=== PATIENT | female | born 1980 | race Caucasian/White ===

== ENCOUNTER 2016-11-17 00:06 | Observation (INO) | payer MEDICAID ==
[2016-11-17] VITALS (8 sets, daily range): BP systolic 119–162; BP diastolic 70–95; PULSE 70–107; RESP 16–20; TEMP 97.7–98.3; O2SAT 95–100
--- NOTE | 2016-11-17 01:07 | PD ---
HPI Chief Complaint: Abdominal Pain Time Seen by Provider: 00:24 Travel History International Travel<30 days: No Contact w/Intl Traveler<30days: No Traveled to known affect area: No History of Present Illness HPI Patient 36-year-old female initially speaker presents emergency department for right upper quadrant abdominal pain which first started about 5:00 in the afternoon. Patient states she was at work when he first started. States her last meal was approximately 8:00 and she had some fried plantains as well as beans and eggs. Patient states the pain is primarily in the right upper quadrant radiating around to her back. She denies any diarrhea but does endorse nausea and vomiting which is "greasy". She states she did have a previous episode similar in the past approximately 2 weeks ago which was fairly mild. She has not had any surgeries on her abdomen. Denies any allergies. Has not taken anything prior to arrival. Describes pain as cramping in nature. This history is obtained through sports teacher service. Denies any dysuria vaginal bleeding vaginal discharge. [facility] Past Medical History Medical History: Denies Significant Hx Diminished Hearing: No Tetanus Vaccination: Unknown Influenza Vaccination: No ?: Not : 4 Para: 3 Miscarriage: 1 Past Surgical History Surgical History: No Previous Surgery Section: Yes (X1) Hysterectomy: Yes Social History Alcohol Use: No Tobacco Use: No Substance Use: No Allergies-Medications (Allergen,Severity, Reaction): Coded Allergies: No Known Allergies (Unverified , 11/17/16) Reported Meds & Prescriptions Reported Meds & Active Scripts Active No Active Prescriptions or Reported Medications Review of Systems Except as stated in HPI: all other systems reviewed are Neg Physical Exam Narrative GENERAL: Well-developed well-nourished no apparent distress. SKIN: Focused skin assessment warm/dry. HEAD: Atraumatic. Normocephalic. EYES: Pupils equal and round. No scleral icterus. No injection or drainage. ENT: No nasal bleeding or discharge. Mucous membranes pink and moist. NECK: Trachea midline. No JVD. CARDIOVASCULAR: Regular rate and rhythm. No murmur appreciated. RESPIRATORY: No accessory muscle use. Clear to auscultation. Breath sounds equal bilaterally. GASTROINTESTINAL: Abdomen soft, moderately tender in the right upper quadrant, nondistended. Hepatic and splenic margins not palpable. Wahl sign is weakly positive. Psoas and obturator signs negative. No peritoneal signs. No CVA tenderness. MUSCULOSKELETAL: No obvious deformities. No clubbing. No cyanosis. No edema. NEUROLOGICAL: Awake and alert. No obvious cranial nerve deficits. Motor grossly within normal limits. Normal speech. PSYCHIATRIC: Appropriate mood and affect; insight and judgment normal. Data Data Last Documented VS Vital Signs Date Time Temp Pulse Resp B/P Pulse Ox O2 Delivery O2 Flow Rate FiO2 11/17/16 02:08 85 18 121/72 99 Room Air 11/17/16 00:09 98.2 Orders Complete Blood Count With Diff (11/17/16 00:25) Comprehensive Metabolic Panel (11/17/16 00:25) Lipase (11/17/16 00:25) Urinalysis - C+S If Indicated (11/17/16 00:25) Iv Access Insert/Monitor (11/17/16 00:25) Ecg Monitoring (11/17/16 00:25) Oximetry (11/17/16 00:25) Ed Urine Pregnancytest Poc (11/17/16 00:25) Morphine Inj (Morphine Inj) (11/17/16 01:45) Ondansetron Inj (Zofran Inj) (11/17/16 01:45) Sodium Chlor 0.9% 1000 Ml Inj (Ns 1000 M (11/17/16 01:45) Us Abdomen Gallbladder (11/17/16 01:44) Admit Order (Ed Use Only) (11/17/16 ) Activity Bed Rest With Brp (11/17/16 03:53) Morphine Inj (Morphine Inj) (11/17/16 04:00) Ondansetron Inj (Zofran Inj) (11/17/16 04:00) Ceftriaxone Inj (Rocephin Inj) (11/17/16 04:00) Metronidazole 500 Mg Inj (Flagyl 500 Mg (11/17/16 04:00) Sodium Chlor 0.9% 1000 Ml Inj (Ns 1000 M (11/17/16 04:00) Diet Npo (11/17/16 Breakfast) Labs Laboratory Tests Test 11/17/16 11/17/16 00:40 01:45 White Blood Count 9.8 TH/MM3 Red Blood Count 4.05 MIL/MM3 Hemoglobin 12.6 GM/DL Hematocrit 37.7 % Mean Corpuscular Volume 93.0 FL Mean Corpuscular Hemoglobin 31.2 PG Mean Corpuscular Hemoglobin 33.5 % Concent Red Cell Distribution Width 13.5 % Platelet Count 290 TH/MM3 Mean Platelet Volume 9.4 FL Neutrophils (%) (Auto) 53.7 % Lymphocytes (%) (Auto) 35.8 % Monocytes (%) (Auto) 6.5 % Eosinophils (%) (Auto) 3.4 % Basophils (%) (Auto) 0.6 % Neutrophils # (Auto) 5.3 TH/MM3 Lymphocytes # (Auto) 3.5 TH/MM3 Monocytes # (Auto) 0.6 TH/MM3 Eosinophils # (Auto) 0.3 TH/MM3 Basophils # (Auto) 0.1 TH/MM3 CBC Comment DIFF FINAL Differential Comment Sodium Level 142 MEQ/L Potassium Level 3.7 MEQ/L Chloride Level 108 MEQ/L Carbon Dioxide Level 23.9 MEQ/L Anion Gap 10 MEQ/L Blood Urea Nitrogen 13 MG/DL Creatinine 0.80 MG/DL Estimat Glomerular Filtration 82 ML/MIN Rate Random Glucose 109 MG/DL Calcium Level 8.5 MG/DL Total Bilirubin 0.4 MG/DL Aspartate Amino Transf 18 U/L (AST/SGOT) Alanine Aminotransferase 25 U/L (ALT/SGPT) Alkaline Phosphatase 59 U/L Total Protein 7.6 GM/DL Albumin 3.7 GM/DL Lipase 252 U/L Urine Color LIGHT-YELLOW Urine Turbidity CLEAR Urine pH 7.5 Urine Specific Morgan 1.009 Urine Protein NEG mg/dL Urine Glucose (UA) NEG mg/dL Urine Ketones NEG mg/dL Urine Occult Blood NEG Urine Nitrite NEG Urine Bilirubin NEG Urine Urobilinogen LESS THAN 2.0 MG/DL Urine Leukocyte Esterase NEG Urine RBC LESS THAN 1 /hpf Urine WBC LESS THAN 1 /hpf Urine Squamous Epithelial <1 /hpf Cells Urine Bacteria FEW /hpf Microscopic Urinalysis Comment CULT NOT INDICATED MDM Medical Decision Making Medical Screen Exam Complete: Yes Emergency Medical Condition: Yes Differential Diagnosis Cholecystitis, pancreatitis, gastritis, gastroenteritis. Narrative Course Patient 36-year-old female fairly classic for cholecystitis. Ultrasound does show: Last 24 hours Impressions Gall Bladder Ultrasound 11/17/16 0144 Signed Impressions: Service Date/Time: Thursday, November 17, 2016 02:10 - CONCLUSION: 1. Cholelithiasis with a stone lodged in the neck of the gallbladder. There is some wall thickening. This can be seen in chronic as well as acute cholecystitis. 2. Dilated common bile duct. The visualized portions of the common bile duct show no discernible stone. There are portions that are not well seen. MRCP could be entertained to further evaluate if clinically warranted. 3. Hepatic steatosis. Ryan Avalos Jr., MD Patient's labs are reassuring including LFTs white blood cell count. Patient is afebrile in the emergency department. She was given morphine and Zofran and still is having waxing and waning right upper quadrant abdominal pain. Patient was discussed Dr. Philippe for admission and he is agreeable. Holding orders were placed. This was all discussed with the patient through sports teacher service and she is agreeable for this course of action. Her pain she states is a little bit better but still waxing and waning she declined additional pain medicine. She understands that the course of treatment for cholecystitis as ultimately surgery and she is willing to consider it. Patient remain nothing by mouth for probable surgical intervention tomorrow later today. Diagnosis Primary Impression: Acute cholecystitis Admitting Information Admitting Physician Requests: Admit Scripts No Active Prescriptions or Reported Meds Condition: Pérez Erwin MD Nov 17, 2016 01:07
[2016-11-17 01:10] LABS: AUTOMATED NEUTROPHIL # 5.3 TH/MM3 (1.8-7.7); BASOPHIL # 0.1 TH/MM3 (0-0.2); BASOPHIL % 0.6 % (0.0-2.0); EOSINOPHIL # 0.3 TH/MM3 (0-0.4); EOSINOPHIL % 3.4 % (0.0-4.0); HEMATOCRIT 37.7 % (35.0-46.0); HEMO FLAGS DIFF FINAL; LYMPH % 35.8 % (9.0-44.0); LYMPHOCYTE # 3.5 TH/MM3 (1.0-4.8); MEAN CORPUSCULAR HEMOGLOBIN 31.2 PG (27.0-34.0); MEAN CORPUSCULAR HGB CONC 33.5 % (32.0-36.0); MONO % 6.5 % (0.0-8.0); NEUT % 53.7 % (16.0-70.0); PLATELET COUNT 290 TH/MM3 (150-450); RED BLOOD COUNT 4.05 MIL/MM3 (4.00-5.30); RED CELL DISTRIBUTION WIDTH 13.5 % (11.6-17.2); WHITE BLOOD COUNT 9.8 TH/MM3 (4.0-11.0)
[2016-11-17 01:24] LABS: ALT (GPT) 25 U/L (10-53); ANION GAP 10 MEQ/L (5-15); AST (GOT) 18 U/L (15-37); BICARBONATE 23.9 MEQ/L (21.0-32.0); BLOOD UREA NITROGEN 13 MG/DL (7-18); CHLORIDE 108 MEQ/L (98-107); GLOMERULAR FILTRATION RATE 82 ML/MIN (>89); POTASSIUM 3.7 MEQ/L (3.5-5.1); SODIUM (NA) 142 MEQ/L (136-145)
[2016-11-17 01:27] LABS: ALKALINE PHOSPHATASE 59 U/L (45-117); TOTAL BILIRUBIN ADULT 0.4 MG/DL (0.2-1.0)
[2016-11-17] MEDS ORDERED: MORPHINE SULFATE 4 MG/ML INJ IV PUSH ONE (01:45)
[2016-11-17] MEDS ORDERED: ONDANSETRON HCL 4 MG/2 ML VIAL IV PUSH ONE ×2 (01:45→12:00)
[2016-11-17] MEDS ORDERED: SODIUM CHLOR 0.9% 1000 ML INJ 1,000 ML IV ONE (01:45)
[2016-11-17 02:07] LABS: BACTERIA, URINE FEW /hpf; BLOOD, URINE NEG (NEG); GLUCOSE,URINE NEG (NEG); KETONE, URINE NEG (NEG); NITRITE,URINE NEG (NEG); PH, URINE 7.5 (5.0-8.5); SQUAMOUS EPITHELIAL CELL URINE <1 /hpf (0-5); URINE COLOR LIGHT-YELLOW (YELLW/STRAW)
[2016-11-17 02:08] LABS: COMMENT (UR) CULT NOT INDICATED; CULTURE IF INDICATED CULT NOT INDICATED
--- NOTE | 2016-11-17 02:55 | RADRPT ---
EXAM DATE/TIME: 11/17/2016 02:10 [facility] COMPARISON: No previous studies available for comparison. INDICATIONS : Right upper quadrant pain. MEDICAL HISTORY : Right upper quadrant pain. SURGICAL HISTORY : None. ENCOUNTER: Initial ACUITY: 2 weeks PAIN SCORE: 10/10 LOCATION: Right upper quadrant MEASUREMENTS: LIVER: 18.8 cm length COMMON DUCT: 10 mm RIGHT KIDNEY: 11.1 x 5.8 x 4.9 cm FINDINGS: LIVER: Liver is diffusely echogenic. No mass or ductal dilatation. Hepatopedal flow within the portal vein. COMMON DUCT: The common bile duct is dilated measuring 10 mm. No discernible stone within the common bile duct obs erved. GALLBLADDER: Multiple calcified gallstones are seen within the gallbladder. One stone is lodged within the neck of the gallbladder. The wall is thickened. No pericholecystic fluid. PANCREAS: The visualized portions are within normal limits. RIGHT KIDNEY: No evidence of hydronephrosis, stone, or mass. CONCLUSION: 1. Cholelithiasis with a stone lodged in the neck of the gallbladder. There is some wall thickening. This can be seen in chronic as well as acute cholecystitis. 2. Dilated common bile duct. The visualized portions of the common bile duct show no discernible ston e. There are portions that are not well seen. MRCP could be entertained to further evaluate if clinic ally warranted. 3. Hepatic steatosis. Ryan Avalos Jr., MD on November 17, 2016 at 2:50 Board Certified Radiologist. This report was verified electronically.
[2016-11-17] MEDS ORDERED: ONDANSETRON HCL 4 MG/2 ML VIAL IV PUSH PRN (04:00)
[2016-11-17] MEDS ORDERED: SODIUM CHLOR 0.9% 1000 ML INJ 1,000 ML IV SCH (04:00)
[2016-11-17] MEDS ORDERED: metroNIDAZOLE 500 MG INJ 100 ML IV ONE (04:00)
[2016-11-17] MEDS ORDERED: cefTRIAXone INJ 1,000 MG in SODIUM CHLORIDE 0.9% INJ 100 ML IV ONE (04:00)
[2016-11-17] MEDS ORDERED: MORPHINE SULFATE 4 MG/ML INJ IV PUSH PRN (04:00)
[2016-11-17] MEDS ORDERED: BUPIVACAINE/EPINEPHRINE 0.25% 50 ML VIAL ONE (09:25)
[2016-11-17] MEDS ORDERED: MIDAZOLAM HCL 2 MG/2 ML VIAL ONE (10:46)
[2016-11-17] MEDS ORDERED: ACETAMINOPHEN 1000 MG/100 ML VIAL IV ONE (10:46)
[2016-11-17] MEDS ORDERED: FAMOTIDINE 20 MG/2 ML VIAL ONE (10:46)
[2016-11-17] MEDS ORDERED: LIDOCAINE 1%/EPINEPHrine 1:100,000 SOLN 20 ML VIAL ONE (10:50)
[2016-11-17] MEDS ORDERED: fentaNYL CITRATE 250 MCG/5 ML AMP ONE (11:26)
[2016-11-17] MEDS ORDERED: NEOSTIGMINE METHYLSULFATE 10 MG/10 ML VIAL IV PUSH ONE (12:00)
[2016-11-17] MEDS ORDERED: PROPOFOL 200 MG/20 ML AMP IV ONE (12:00)
[2016-11-17] MEDS ORDERED: DO NOT ADM ANY ANTICOAGULANT DRUGS PRN (12:57)
[2016-11-17] MEDS ORDERED: ceFAZolin 2 GM PREMIX 50 ML ONE (13:11)
--- NOTE | 2016-11-17 13:23 | HHI.PR ---
Immediate Post Op Note Procedure Date: Nov 17, 2016 Pre Op Diagnosis: acute cholecystitis with cholelithiasis Post Op Diagnosis: same, hydrops Surgeon: Farhan Philippe MD Card Scraper(s): see or sheet Procedure: lap josh Findings: distended gallbladder, multiple stones impacted, hydrops Complications: none Specimen(s) removed: gallbladder Estimated blood loss: 15cc Anesthesia: General Drains: None Patient to: PACU Patient Condition: Good Farhan Philippe MD Nov 17, 2016 13:23
[2016-11-17] MEDS ORDERED: HYDROmorphone HCL PF 1 MG/ML VIAL IV PRN (13:30)
[2016-11-17] MEDS: SODIUM CHLORIDE 0.9% FLUSH 10 ML FLUSH IV FLUSH SCH ×2 (13:30→19:59)
[2016-11-17] MEDS ORDERED: ACETAMINOPHEN/HYDROcodone 325 MG/5 MG TAB PO PRN (13:30)
[2016-11-17] MEDS ORDERED: SODIUM CHLORIDE 0.9% FLUSH 10 ML FLUSH IV FLUSH PRN (13:30)
[2016-11-17] MEDS ORDERED: Post-op Orders (for Pharmacy) MISC XX ONE (13:30)
[2016-11-17] MEDS ORDERED: diphenhydrAMINE HCL 25 MG CAP PO PRN (13:30)
[2016-11-17] MEDS ORDERED: *morphine SULFATE 8 MG/ML PERIprocedure ONLY ONE ×2 (13:37→13:53)
[2016-11-17] MEDS: DOCUSATE SODIUM 100 MG CAP PO SCH ×2 (14:00→22:05)
[2016-11-17] MEDS: LACTATED RINGER'S 1000 ML INJ 1,000 ML IV SCH (14:00)
[2016-11-17] MEDS: metroNIDAZOLE 500 MG INJ 100 ML IV SCH ×2 (14:56→22:05)
[2016-11-17] MEDS: ACETAMINOPHEN/HYDROcodone 325 MG/5 MG TAB PO PRN ×2 (14:56→22:06)
[2016-11-17] MEDS: ONDANSETRON HCL 4 MG/2 ML VIAL IV PRN (22:06)
--- NOTE | 2016-11-17 22:28 | MH ---
cc: DUTCH ROSS MD DATE OF ADMISSION 11/17/2016 CHIEF COMPLAINT Right upper quadrant abdominal pain. HISTORY OF PRESENT ILLNESS The patient is a 36-year-old female, Icelandic-speaking, complaints of right upper quadrant pain. States pain started afternoon and continued to get worse. The patient states the pain was an 8/10, currently is 7/10. She states it is persistent, the worst pain she has had. It is sharp and radiates to her back. She also has some associated nausea, denies vomiting. She states it is worse with palpation and better with lying still. She states that she had a weaker episode two weeks ago but resolved on its own and this is a recurrence. She came to the emergency department for evaluation including gallbladder ultrasound showing multiple gallstones lodged in gallbladder neck, wall thickening and dilated common bile duct. AST, ALT, T bili completely normal. Therefore surgery was consulted. On exam the patient is resting comfortably. States some improvement with IV pain medications but states pain is pretty severe and persistent. She denies any fevers, chills, diarrhea or constipation. PAST MEDICAL HISTORY The patient denies any significant past medical history. PAST SURGICAL HISTORY 1. section. 2. Hysterectomy. FAMILY HISTORY Denies hypertension or diabetes. SOCIAL HISTORY Denies smoking, EtOH or IVDA. ALLERGIES The patient has no known drug allergies. MEDICATIONS See EMR. REVIEW OF SYSTEMS GENERAL: The patient denies eye pain, ear pain, or scleral icterus. HEENT: Denies blurry vision or myopia. NECK: Denies swelling or pain. CARDIOVASCULAR: Denies palpitations or chest pain. RESPIRATORY: Denies cough or wheeze. ABDOMEN: Complains of abdominal pain. Denies vomiting. Complains of nausea. MUSCULOSKELETAL: Denies arthralgia, myalgias. NEUROLOGIC: Denies numbness, tingling. GENITOURINARY: Denies dysuria, hematuria. ENDOCRINE: Denies polyuria, polydipsia. PSYCHIATRIC: Denies change in mood or affect. INTEGUMENT: Denies recent rashes or lesions. PHYSICAL EXAMINATION GENERAL: The patient no acute distress. VITAL SIGNS: Temperature 98.2, pulse 85, respirations 18, blood pressure 121/72. Pulse oximetry 99%. HEENT: PERRLA, pupils equal, round, reactive. No scleral icterus. NECK: Supple. Trachea is midline. CARDIOVASCULAR: Regular rate and rhythm. LUNGS: Clear to auscultation bilaterally with bilateral expansion. ABDOMEN: Soft, positive tenderness to palpation. Positive rebound in the right upper quadrant. Positive Wahl's sign. No peritoneal signs. MUSCULOSKELETAL: Warm, well-perfused. NEUROLOGIC: GCS of 15. No numbness. PSYCHIATRIC: Good insight, good judgment. INTEGUMENT: No obvious masses or lesions. LABORATORY AND DIAGNOSTIC DATA WBC 9.8, hemoglobin 12.6, hematocrit 37.7, platelets 290. Sodium 142, potassium 3.7, chloride 108. BUN 13, creatinine 0.8, calcium 8.5, AST 18, ALT 25, alk phos 59. T bili 0.4. Lipase 252. IMAGING Ultrasound reviewed by myself, cholelithiasis, multiple large gallstones lodged in the neck, gallbladder wall thickening, bile duct 1 cm. ASSESSMENT The patient is a 36-year-old female Icelandic speaker presents with the right upper quadrant pain, cholelithiasis, symptomatic cholecystitis. PLAN After full radiologic, clinical, laboratory data, burr machine operator used to discuss risks, benefits and alternatives and decision for operative intervention. The patient stated complete understanding with this. Surgery described in detail, possible risks, possible open procedure, possible need for drain. At this point recommend antibiotics, n.p.o., pain control. Again discussed with the patient and family at bedside and burr machine operator. We will proceed to the OR for laparoscopic cholecystectomy. MD YUSRA Brown/SARAH /9:58 PM /10:09 PM
[2016-11-18] VITALS (7 sets, daily range): BP systolic 108–117; BP diastolic 60–78; PULSE 67–91; RESP 16–20; TEMP 97.5–98.2; O2SAT 96–99
[2016-11-18] MEDS: LACTATED RINGER'S 1000 ML INJ 1,000 ML IV SCH ×3 (01:26→19:19)
[2016-11-18] MEDS: metroNIDAZOLE 500 MG INJ 100 ML IV SCH (05:19)
[2016-11-18 05:58] LABS: AUTOMATED NEUTROPHIL # 9.9 TH/MM3 (1.8-7.7); BASOPHIL % 0.3 % (0.0-2.0); EOSINOPHIL % 0.1 % (0.0-4.0); HEMATOCRIT 37.4 % (35.0-46.0); HEMO FLAGS DIFF FINAL; LYMPH % 12.3 % (9.0-44.0); LYMPHOCYTE # 1.5 TH/MM3 (1.0-4.8); MEAN CORPUSCULAR HGB CONC 33.7 % (32.0-36.0); MONO % 5.3 % (0.0-8.0); PLATELET COUNT 304 TH/MM3 (150-450); RED BLOOD COUNT 4.06 MIL/MM3 (4.00-5.30); RED CELL DISTRIBUTION WIDTH 13.3 % (11.6-17.2)
[2016-11-18 06:19] LABS: BICARBONATE 23.3 MEQ/L (21.0-32.0); POTASSIUM 3.8 MEQ/L (3.5-5.1)
[2016-11-18] MEDS: SODIUM CHLORIDE 0.9% FLUSH 10 ML FLUSH IV FLUSH SCH ×2 (09:00→21:20)
[2016-11-18] MEDS: DOCUSATE SODIUM 100 MG CAP PO SCH ×2 (10:05→21:20)
[2016-11-18] MEDS: ONDANSETRON HCL 4 MG/2 ML VIAL IV PRN (10:10)
--- NOTE | 2016-11-18 14:14 | HHI.PR ---
Subjective Subjective Notes Resting in bed c/o burping a lot Objective Vitals/I&O Vital Signs Date Time Temp Pulse Resp B/P Pulse Ox O2 Delivery O2 Flow Rate FiO2 11/18/16 12:00 98.2 69 16 109/71 97 11/18/16 09:51 21 11/17/16 14:15 Room Air 11/17/16 13:05 2 Labs Laboratory Tests Test 11/18/16 04:49 White Blood Count 12.0 Red Blood Count 4.06 Hemoglobin 12.6 Hematocrit 37.4 Mean Corpuscular Volume 92.0 Mean Corpuscular Hemoglobin 31.0 Mean Corpuscular Hemoglobin 33.7 Concent Red Cell Distribution Width 13.3 Platelet Count 304 Mean Platelet Volume 9.4 Neutrophils (%) (Auto) 82.0 Lymphocytes (%) (Auto) 12.3 Monocytes (%) (Auto) 5.3 Eosinophils (%) (Auto) 0.1 Basophils (%) (Auto) 0.3 Neutrophils # (Auto) 9.9 Lymphocytes # (Auto) 1.5 Monocytes # (Auto) 0.6 Eosinophils # (Auto) 0.0 Basophils # (Auto) 0.0 CBC Comment DIFF FINAL Differential Comment Sodium Level 139 Potassium Level 3.8 Chloride Level 105 Carbon Dioxide Level 23.3 Anion Gap 11 Blood Urea Nitrogen 6 Creatinine 0.66 Estimat Glomerular Filtration 102 Rate Random Glucose 104 Calcium Level 8.8 Cardiovascular: Regular Lungs: Clear Abdomen: Other (abdomen soft; tender at incision sites; lap sites c/d/i ) Extremities: No edema A/P Assessment and Plan 36 year old female POD1 lap josh -Continue clears until belching decreased -Pain control -OOB and mobilize Attending Statement patient seen at bedside s/p lap josh await bowel fxn Attestation The exam, history, and the medical decision-making described in the above note were completed with the assistance of the mid-level provider. I reviewed and agree with the findings presented. I attest that I had a [id number] encounter with the patient on the same day, and personally performed and documented my assessment and findings in the medical record. Taniya Coates Nov 18, 2016 14:14 Farhan Philippe MD Nov 28, 2016 21:30
[2016-11-18] MEDS: HEPARIN SODIUM - SQ 10,000 UNITS/ML VIAL SQ SCH ×2 (14:22→21:20)
[2016-11-18] MEDS: ACETAMINOPHEN/HYDROcodone 325 MG/5 MG TAB PO PRN (21:20)
[2016-11-19] VITALS: BP 111/64; PULSE 72; RESP 20; TEMP 98.9; O2SAT 97
[2016-11-19 04:00] VITALS: BP 116/72; PULSE 70; RESP 20; TEMP 98.4; O2SAT 97
[2016-11-19] MEDS: LACTATED RINGER'S 1000 ML INJ 1,000 ML IV SCH (05:19)
[2016-11-19 08:00] VITALS: BP 107/71; PULSE 69; RESP 16; TEMP 96.5; O2SAT 96
[2016-11-19 08:29] VITALS: O2SAT 95
[2016-11-19] MEDS: DOCUSATE SODIUM 100 MG CAP PO SCH (10:03)
[2016-11-19] MEDS: ACETAMINOPHEN/HYDROcodone 325 MG/5 MG TAB PO PRN (10:04)
[2016-11-19] MEDS: SODIUM CHLORIDE 0.9% FLUSH 10 ML FLUSH IV FLUSH SCH (10:04)
[2016-11-19 12:00] VITALS: BP 110/79; PULSE 85; RESP 16; TEMP 98.2; O2SAT 96
[2016-11-19] MEDS: HEPARIN SODIUM - SQ 10,000 UNITS/ML VIAL SQ SCH (12:49)
[2016-11-19 16:00] VITALS: BP 108/74; PULSE 74; RESP 16; TEMP 98; O2SAT 97
--- NOTE | 2016-11-19 19:49 | MP ---
cc: DUTCH PHILIPPE MD DATE OF SURGERY: 11/17/2016 PREOPERATIVE DIAGNOSIS: Acute cholecystitis with cholelithiasis. POSTOPERATIVE DIAGNOSIS: Acute cholecystitis with cholelithiasis, gallbladder hydrops. PROCEDURE: Laparoscopic cholecystectomy SURGEON: Dr. Dutch Philippe. EMPLOYMENT OFFICER: See OR sheet. ANESTHESIA: GETA. IV FLUIDS: 800 cc. ESTIMATED BLOOD LOSS: 15 cc. DRAINS: None. COMPLICATIONS: None. WOUND CLASSIFICATION: Clean/contaminated. SPECIMENS: Gallbladder. FINDINGS: Distended gallbladder, multiple large gallbladder stones, significant gallbladder edema with wall thickening, gallbladder hydrops. INDICATIONS FOR THE PROCEDURE: The patient is a 36-year-old female who presents with acute onset of right upper quadrant pain. The patient states the pain initially started approximately 24 hours ago and continued to get worse. She had further workup including right upper quadrant ultrasound showing concerns for cholecystitis with cholelithiasis and a large stone impacted in the gallbladder neck, multiple gallstones, 10 mm cystic duct. Decision was made for operative intervention including laparoscopic cholecystectomy. DESCRIPTION OF THE PROCEDURE IN DETAIL: The patient was taken to the operating room suite and placed in the supine position. She was prepped and draped in the usual sterile fashion after induction with general endotracheal anesthesia. A brief time out was done stating the correct patient, procedure and surgical site and we were all in agreement with this. Attention was directed to the umbilicus. A stab jyothi incision was made with a #11 blade. Local anesthetic injected. Veress needle placed intraabdominally and confirmed with saline drop test. The abdomen was insufflated to 15 mmHg pneumoperitoneum. The Veress needle was changed for a 5 mm trocar and scope. On cursory inspection, no evidence of injury. Three other trocars were placed: One 12 mm epigastric followed by two 5 mm subcostal anterior axillary line and mid axillary line. She was then placed in reverse Trendelenburg and planed to the left. The gallbladder was grasped and noted to be thickened and edematous and distended with multiple large gallstones especially lodged in the infundibulum and neck. The gallbladder was retracted cephalad. Dissection with Bovie electrocautery as well and [place] dissector. The cystic duct was dissected out and noted to be shortened and somewhat large and somewhat thick. Also the cystic artery was dissected out as well. A 10 mm Endo clip was used x3 to the cystic duct and one further one was placed a little distal and this was used to incise the cystic duct. Next the cystic artery was fully dissected out with two clips placed proximal and distal. The cystic artery was clipped. There were several other small cystic arteries higher up on the liver. A clip was placed across this as well. The gallbladder was dissected from the gallbladder fossa. The gallbladder was placed in an EndoCatch bag. Suction irrigation was used until effluent was clear. Hemostasis was obtained at the gallbladder fossa. The gallbladder was removed from the epigastric port. Again the right upper quadrant was irrigated until the effluent was clear. There was evidence of clear bile with evidence of hydrops noted. Once we had evidence of hemostasis, no evidence of bile leaking, the abdomen was de-sufflated. The patient was flattened out and the epigastric port was closed with [id number] #0 Vicryl. Next the ports were closed with 4-0 Monocryl and Steri-Strips and sterile dressings. The patient tolerated the procedure well. There were no intraoperative complications. All instrument counts were correct at the end of the procedure. The patient was extubated and taken to the post-anesthesia care unit. MD YUSRA Brown/ELMIRA /9:51 PM /7:37 PM
== END 2016-11-19 18:16 | disposition home or self-care (01) ==
LOC: NEPE 00:06 → INTOOBSV 03:58 → NEDA 03:58 → HOCA 06:36
PROVIDERS: ADMIT Surgery; ATTEND Surgery
DX: K80.10 Calculus of gallbladder with chronic cholecystitis without obstruction (principal); K82.1 Hydrops of gallbladder; K76.0 Fatty (change of) liver, not elsewhere classified; K83.8 Other specified diseases of biliary tract
CPT/HCPCS: 00790; 47562; 76705; 80048; 80053; 81001; 83690; 84703; 85025; 88304; 94150; 96361; 96374; 96375; 99285; G0378; J0131; J0690; J0696; J1170; J1644; J2250; J2270; J2405; J2710; J3010; J7030; J7120